=== PATIENT | male | born 1990 | race Hispanic/Latino ===

== ENCOUNTER 2024-02-22 20:43 | Emergency (ER) | payer OTHER ==
[2024-02-22] MEDS ORDERED: LIDOCAINE 1% 20 ML MDV ONE (22:13)
[2024-02-22] MEDS ORDERED: IBUPROFEN 400 MG TAB ONE (22:14)
[2024-02-22] MEDS ORDERED: CEPHALEXIN 250 MG CAP ONE (22:14)
[2024-02-22] MEDS ORDERED: ONDANSETRON 4 MG (ODT) TAB ONE (22:14)
[2024-02-22] MEDS ORDERED: TDAP (DIPHTH,PERTUSS(ACELL),TET VAC) 0.5 ML VIAL IMVAC ONE (22:15)
[2024-02-22] MEDS ORDERED: TRAMADOL HCL 50 MG TAB ONE (22:15)
--- NOTE | 2024-02-22 22:38 | RAD REPORT ---
EXAM: XR Hand Right 3 View [facility] Bed Name: 15 COMPARISON: None TECHNIQUE: 3 radiographic views of the RIGHT hand submitted. FINDINGS: No evidence of acute fracture or dislocation. Joint alignment is maintained. Mild thenar a nd dorsal soft tissue swelling.. No significant degenerative changes are present. IMPRESSION: No significant bone or joint abnormality. Mild soft tissue swelling as above.
--- NOTE | 2024-02-22 23:09 | ER ---
Nurse's Notes [facility] Name: Baldomero Neff Age: 33 yrs Sex: Male : 1990 Arrival Date: 02/22/2024 Time: 20:43 Bed 15 Private MD: Diagnosis: Laceration without foreign body of right hand, initial encounter;Right dorsal hand laceration at the right Second MCP joint Presentation: 02/21 20:50 Chief complaint: Patient states: finger on right hand injured. Care prior to arrival: kj2 hand wrapped with kerlix. Mechanism of Injury: Crush injury from locker door. Trauma event details: Injury occurred in the [facility], Injury occurred: in an institution. 20:50 Acuity: [place] 3 kj2 20:50 Method Of Arrival: Other kj2 20:50 Coronavirus screen: At this time, the client does not indicate any symptoms associated kj2 with coronavirus-19. Ebola Screen: No symptoms or risks identified at this time. Initial Sepsis Screen: Does the patient meet any 2 criteria? No. Patient's initial sepsis screen is negative. Does the patient have a suspected source of infection? No. Patient's initial sepsis screen is negative. Risk Assessment: Do you want to hurt yourself or someone else? Patient reports no desire to harm self or others. Onset of symptoms was February 22, 2024. Triage Assessment: 20:50 General: Appears in no apparent distress. Behavior is calm, cooperative. Pain: kj2 Complains of pain in index finger on right hand Pain currently is 8 out of 10 on a pain scale. Neuro: Level of Consciousness is awake, alert, obeys commands, Oriented to person, place, time, situation. Cardiovascular: Patient's skin is warm and dry. Respiratory: Airway is patent Respiratory effort is even, unlabored. GI: No signs and/or symptoms were reported involving the gastrointestinal system. : No signs and/or symptoms were reported regarding the genitourinary system. Historical: - Allergies: 21:28 No Known Allergies; kj2 - Immunization history:: Adult Immunizations unknown. - Infectious Disease History:: Denies. - Social history:: Smoking status: Patient denies any tobacco usage or history of. - Family history:: not pertinent. Screenin:50 [facility] ED Fall Risk Assessment (Adult) History of falling in the last 3 months, kj2 including since admission No falls in past 3 months (0 pts) Confusion or Disorientation No (0 pts) Intoxicated or Sedated No (0 pts) Impaired Gait No (0 pts) Mobility Assist Device Used No (0 pt) Altered Elimination No (0 pt) Score/Fall Risk Level 0 - 2 = Low Risk Maintained a safe environment, Hourly rounding (assess needs \T\ fall precautionary measures) done. Abuse screen: Denies threats or abuse. Denies injuries from another. Nutritional screening: No deficits noted. Tuberculosis screening: No symptoms or risk factors identified. Assessment: 20:50 General: SEE TRIAGE ASSESSMENT. kj2 22:23 Reassessment: Patient appears in no apparent distress at this time. Patient and/or kj2 family updated on plan of care and expected duration. Pain level reassessed. Patient is alert, oriented x 3, equal unlabored respirations, skin warm/dry/pink. 23:31 Reassessment: Patient appears in no apparent distress at this time. Patient and/or kj2 family updated on plan of care and expected duration. Pain level reassessed. Patient is alert, oriented x 3, equal unlabored respirations, skin warm/dry/pink. Vital Signs: 20:50 BP 111 / 61; Pulse 58; Resp 18; Temp 98.5; Pulse Ox 96% on R/A; Weight 93.44 kg; Height kj2 5 ft. 9 in. ; 22:23 BP 139 / 84; Pulse 62; Resp 18; Pulse Ox 100% ; kj2 23:31 BP 130 / 88; Pulse 64; Resp 18; Temp 97.9; Pulse Ox 100% on R/A; kj2 20:50 Body Mass Index 30.42 (93.44 kg, 175.26 cm) kj2 Yulissa Coma Score: 02/22 04:43 Eye Response: spontaneous(4). Motor Response: obeys commands(6). Verbal Response: sp4 oriented(5). Total: 15. ED Course: 02/21 20:50 Arm band placed on Patient placed in an exam room, on a stretcher. kj2 20:50 Patient has correct armband on for positive identification. Bed in low position. Call kj2 light in reach. Adult w/ patient. Provided Education on: call light. 21:21 Patient arrived in ED. kmf 21:21 Winnie Roberts, RN is Primary Nurse. kj2 21:22 Danny Calderon MD is Attending Physician. sp4 21:26 Triage completed. kj2 22:24 Hand Right 3 View XRAY In Process Unspecified. EDMS 23:35 Assisted provider with: laceration tray setup. Patient did not have IV access during kj2 this emergency room visit. Administered Medications: 22:22 Drug: Ondansetron PO 4 mg PO once Route: PO; kj2 23:32 Follow up: Response: No adverse reaction kj2 22:23 Drug: Boostrix Tdap IM 0.5 ml IM once; as a single dose Route: IM; Site: right deltoid; kj2 23:33 Follow up: Response: No adverse reaction kj2 22:23 Drug: Ibuprofen PO 800 mg PO once Route: PO; kj2 23:32 Follow up: Response: No adverse reaction kj2 22:23 Drug: Cephalexin PO 500 mg PO once Route: PO; kj2 23:32 Follow up: Response: No adverse reaction kj2 22:23 Drug: traMADol PO 100 mg PO once Route: PO; kj2 23:32 Follow up: Response: No adverse reaction; Marked relief of symptoms kj2 23:32 Drug: Trimethoprim-Sulfamethoxazole PO (160 mg-800 mg (DS) 1 tablet PO once Route: PO; kj2 23:32 Follow up: Response: No adverse reaction; Medication administered at discharge. kj2 23:33 Drug: Lidocaine Infiltration (1 %) 20 ml 20 ml Infiltration once; to bedside {Note: kj2 administered by provider.} Volume: 20 ml; Route: Infiltration; Medication: 22:24 Vaccine Information Statement (VIS) provided today. Questions and/or concerns kj2 addressed. VIS edition date: November 21, 2020. Outcome: 23:08 Discharge ordered by . sp4 23:34 Discharged to [facility] officers kj2 23:34 Condition: stable 23:34 Discharge instructions given to patient, [facility] staff Instructed on discharge instructions, follow up and referral plans. medication usage, Demonstrated understanding of instructions, follow-up care, medications, Prescriptions given X 3, 23:36 Patient left the ED. kj2 Signatures: Dispatcher [employer] EDMI Danny Calderon MD MD sp4 KeylaYojana Krystal, RN RN kj2
--- NOTE | 2024-02-22 23:09 | EDPHYS ---
Physician Documentation [facility] Name: Baldomero Neff Age: 33 yrs Sex: Male : 1990 Arrival Date: 02/22/2024 Time: 20:43 Bed 15 Private MD: ED Physician Danny Calderon HPI: 02/21 21:22 This 33 yrs old Male presents to ER via Unassigned with complaints of Crush sp4 Injury To Foot. 02/22 04:43 33-year-old male presents with complaint of injury to the right hand. Patient states he sp4 closed accidentally of his locker onto the knuckle of the right hand. Now he has a laceration and problems moving his right index finger. Laceration right dorsal hand right index finger MCP knuckle. Historical: - Allergies: 02/21 21:28 No Known Allergies; kj2 - Immunization history:: Adult Immunizations unknown. - Infectious Disease History:: Denies. - Social history:: Smoking status: Patient denies any tobacco usage or history of. - Family history:: not pertinent. ROS: 02/22 04:43 Constitutional: Negative for fever, chills, and weight loss, positive right hand sp4 laceration right index finger knuckle All other systems are negative, Exam: 04:43 Constitutional: This is a well developed, well nourished patient who is awake, alert, sp4 and in no acute distress. Head/Face: Normocephalic, atraumatic. Eyes: Pupils equal round and reactive to light, extra-ocular motions intact. Lids and lashes normal. Conjunctiva and sclera are not injected. Cornea within normal limits. Periorbital areas with no swelling, redness, or edema. ENT: Nares patent. No nasal discharge, no septal abnormalities noted. Tympanic membranes are normal and external auditory canals are clear. Oropharynx with no redness, swelling, or masses, exudates, or evidence of obstruction, uvula midline. Mucous membranes moist. Neck: Trachea midline, no thyromegaly or masses palpated, and no cervical lymphadenopathy. Supple, full range of motion without nuchal rigidity, or vertebral point tenderness. Chest/axilla: Normal chest wall appearance and motion. Nontender with no deformity. No lesions are appreciated. Cardiovascular: Regular rate and rhythm with a normal S1 and S2. No gallops, murmurs, or rubs. Normal PMI, no JVD. No pulse deficits. Respiratory: Lungs have equal breath sounds bilaterally, clear to auscultation and percussion. No rales, rhonchi or wheezes noted. No increased work of breathing, no retractions or nasal flaring. Abdomen/GI: Soft, with normal bowel sounds. No distension or tympany. No guarding or rebound. No evidence of tenderness throughout. Back: No spinal tenderness. No costovertebral tenderness. Skin: Warm, dry with normal turgor. Normal color with no rashes, no lesions, and no evidence of cellulitis. MS/ Extremity: Pulses equal, no cyanosis. Neurovascular intact. Full, normal range of motion. Positive Right hand laceration right dorsal hand at the right index finger MCP joint surface , C shaped laceration with a small flap 3 cm elias Neuro: Awake and alert, GCS 15, oriented to person, place, time, and situation. Cranial nerves II-XII grossly intact. Motor strength 5/5 in all extremities. Sensory grossly intact. Psych: Awake, alert, with orientation to person, place and time. Behavior, mood, and affect are within normal limits Vital Signs: 02/21 20:50 BP 111 / 61; Pulse 58; Resp 18; Temp 98.5; Pulse Ox 96% on R/A; Weight 93.44 kg; Height kj2 5 ft. 9 in. ; 22:23 BP 139 / 84; Pulse 62; Resp 18; Pulse Ox 100% ; kj2 23:31 BP 130 / 88; Pulse 64; Resp 18; Temp 97.9; Pulse Ox 100% on R/A; kj2 20:50 Body Mass Index 30.42 (93.44 kg, 175.26 cm) kj2 [place] Coma Score: 02/22 04:43 Eye Response: spontaneous(4). Motor Response: obeys commands(6). Verbal Response: sp4 oriented(5). Total: 15. Laceration: 02/21 23:01 Wound Repair of 3cm ( 1.2in ) subcutaneous laceration to dorsum of right hand - Right sp4 dorsal hand at the right index finger MTP knuckle surface , C shaped laceration with a flap . Irregularly shaped.. Skin/tissue flap noted.. Hemostasis noted.. Distal neuro/vascular/tendon intact. Anesthesia: Wound infiltrated with 10 mls of 1% lidocaine. Wound prep: Moderate cleansing by me, Copious irrigation. Skin closed with 8 4-0 Silk using vertical mattress sutures and sterile technique. Dressed with 4x4's, Kerlix, non-adherent dressing. Patient tolerated well. MDM: 21:27 Medical Screening Exam initiated sp4 23:01 ED course: EXAM: XR Hand Right 3 View HISTORY: [facility] MAIN hand injury Bed Name: 15 4 COMPARISON: None TECHNIQUE: 3 radiographic views of the RIGHT hand submitted. FINDINGS: No evidence of acute fracture or dislocation. Joint alignment is maintained. Mild thenar and dorsal soft tissue swelling.. No significant degenerative changes are present. IMPRESSION: No significant bone or joint abnormality. Mild soft tissue swelling as above. 02/22 04:43 Differential diagnosis: fracture, sprain, foreign body, penetrating trauma, arthritis, sp4 gout, cellulitis. Data reviewed: vital signs, nurses notes, radiologic studies, plain films. Consideration of Admission/Observation Escalation of care including admission/observation considered. ED course: Laceration repaired, patient stable for discharge back to [facility] with Bactrim and Keflex for wound prophylaxis. Examination of the right index finger on the right hand tendon function is normal. No sign of tendon laceration. No signs on exam of joint capsule laceration . 02/21 21:51 Order name: Hand Right 3 View XRAY sp4 02/21 21:50 Order name: Dressing - Wound; Complete Time: 23:36 sp4 02/21 21:50 Order name: Gloves, Sterile; Complete Time: 22:23 sp4 02/21 21:50 Order name: Setup Suture Tray; Complete Time: 22:23 sp4 Administered Medications: 02/21 22:22 Drug: Ondansetron PO 4 mg PO once Route: PO; kj2 23:32 Follow up: Response: No adverse reaction kj2 22:23 Drug: Boostrix Tdap IM 0.5 ml IM once; as a single dose Route: IM; Site: right deltoid; kj2 23:33 Follow up: Response: No adverse reaction kj2 22:23 Drug: Ibuprofen PO 800 mg PO once Route: PO; kj2 23:32 Follow up: Response: No adverse reaction kj2 22:23 Drug: Cephalexin PO 500 mg PO once Route: PO; kj2 23:32 Follow up: Response: No adverse reaction kj2 22:23 Drug: traMADol PO 100 mg PO once Route: PO; kj2 23:32 Follow up: Response: No adverse reaction; Marked relief of symptoms kj2 23:32 Drug: Trimethoprim-Sulfamethoxazole PO (160 mg-800 mg (DS) 1 tablet PO once Route: PO; kj2 23:32 Follow up: Response: No adverse reaction; Medication administered at discharge. kj2 23:33 Drug: Lidocaine Infiltration (1 %) 20 ml 20 ml Infiltration once; to bedside {Note: kj2 administered by provider.} Volume: 20 ml; Route: Infiltration; Disposition Summary: 02/22/24 23:08 Discharge Ordered Notes: Location: Home sp4 Problem: new sp4 Symptoms: have improved sp4 Condition: Stable sp4 Diagnosis - Laceration without foreign body of right hand, initial encounter sp4 - Right dorsal hand laceration at the right Second MCP joint sp4 Followup: sp4 - With: Private Physician - When: Suture removal after 20 days - Reason: Recheck today's complaints Discharge Instructions: - Discharge Summary Sheet sp4 - Laceration Care, Adult sp4 Forms: - Patient Portal Instructions sp4 Prescriptions: - Cephalexin 250 mg Oral Capsule - take 1 capsule ORAL route every 12 hours for 10 days; 20 capsule; Refills: 0, sp4 Product Selection Permitted - Ibuprofen 800 mg Oral Tablet - take 1 tablet ORAL route every 8 hours As needed take with food; 30 tablet; sp4 Refills: 0, Product Selection Permitted - Bactrim DS 800-160 mg Oral Tablet - take 1 tablet ORAL route every 12 hours for 10 days; 20 tablet; Refills: 0, sp4 Product Selection Permitted Signatures: Dispatcher [employer] Danny Garcia MD MD sp4 Winnie Roberts RN RN kj2
[2024-02-22] MEDS ORDERED: SMZ./TMP. 800/160 MG TABLET ONE (23:21)
[2024-02-23 00:28] VITALS: O2SAT 100
[2024-02-23 00:29] VITALS: BP 130/88; TEMP 97.9
== END 2024-02-22 23:36 | disposition home or self-care (01) ==
LOC: ER 20:43
DX: S61.411A Laceration without foreign body of right hand, initial encounter (principal)
CPT/HCPCS: 73130; 12002; Q0162; J2003